=== PATIENT | female | born 1990 | race Caucasian/White ===

== ENCOUNTER 2017-03-22 06:20 | Inpatient (IN) | payer MEDICAID ==
[2017-03-22] VITALS (14 sets, daily range): BP systolic 104–157; BP diastolic 62–88; PULSE 68–113; RESP 16–18; Ht 162.6 cm; Wt 81.8 kg
[~2017-03-22] VITALS: Ht 162.6 cm; Wt 81.8 kg
[~2017-03-22 06:20] MED LIST: AMOX500C2 PO; FERR240T9 PO; HYDR-3498 PO; PREN1TAB17 PO
[2017-03-22] MEDS ORDERED: LACTATED RINGER'S 1,000 ML IV SCH (07:42)
[2017-03-22] MEDS ORDERED: CARBOPROST 250 MCG INJ IM PRN ×2 (08:00→10:00)
[2017-03-22] MEDS ORDERED: CEFAZOLIN 2 GM/50 ML (PMX) 50 ML IV SCH (08:00)
[2017-03-22] MEDS ORDERED: OXYTOCIN 30 UNITS/LR 500 ML IV SCH ×2 (08:00→09:45)
[2017-03-22] MEDS ORDERED: MISOPROSTOL 200 MCG TAB PR PRN ×2 (08:00→10:00)
[2017-03-22] MEDS ORDERED: OXYTOCIN 30 UNITS/LR 500 ML IV PRN ×2 (08:00→10:00)
[2017-03-22] MEDS ORDERED: METHYLERGONOVINE 0.2 MG INJ IM PRN ×2 (08:00→10:00)
[2017-03-22] MEDS ORDERED: ETOMIDATE 20 MG INJ ONE (08:03)
[2017-03-22] MEDS ORDERED: SUCCINYLCHOLINE CHLORIDE 100 MG/5 ML SYG IV ONE (08:03)
[2017-03-22] MEDS ORDERED: ONDANSETRON 4 MG INJ ONE (08:03)
[2017-03-22] MEDS ORDERED: METOCLOPRAMIDE 10 MG INJ ONE (08:03)
[2017-03-22] MEDS ORDERED: MIDAZOLAM 1 MG/ML 2 ML INJ ONE (08:05)
[2017-03-22 08:09] LABS: BASOPHILS % 0.3 % (0.0-2.0); EOSINOPHILS # 0.2 10^3/ul (0.0-0.5); EOSINOPHILS % 1.5 % (0.0-7.0); HEMATOCRIT 30.6 % (37.0-47.0); HEMOGLOBIN 9.8 g/dl (12.0-16.0); LYMPHOCYTES # 3.1 10^3/ul (0.8-2.9); LYMPHOCYTES % 26.7 % (15.0-51.0); MEAN CORPUSCULAR HEMOGLOBIN 25.1 pg (29.0-33.0); MEAN CORPUSCULAR VOLUME 78.3 fl (82.0-101.0); MEAN PLATELET VOLUME 11.4 fl (7.4-10.4); MONOCYTE # 0.7 10^3/ul (0.3-0.9); MONOCYTES % 6.3 % (0.0-11.0); NEUTROPHIL # 7.3 10^3/ul (1.6-7.5); NEUTROPHILS % 63.7 % (39.0-77.0); NUCLEATED RED BLOOD CELLS # 0.1 10^3/ul (0.0-0.0); NUCLEATED RED BLOOD CELLS% 0.4 /100WBC (0.0-0.0); PLATELET COUNT 297 10^3/UL (140-415); RED BLOOD COUNT 3.91 10^6/ul (4.20-5.40); RED CELL DISTRIBUTION WIDTH 15.6 % (11.5-14.5); WHITE BLOOD COUNT 11.5 10^3/ul (4.8-10.8)
[2017-03-22] MEDS ORDERED: KETAMINE 500 MG INJ ONE (08:14)
[2017-03-22] MEDS ORDERED: PHENYLephrine (100 MCG/ML) 5ML SYG ONE (08:23)
--- NOTE | 2017-03-22 08:25 | HP ---
Date/Time of Note Date/Time of Note DATE: 03/22/17 TIME: 08:09 OB - History Hx of Present Free Text/Dictation March 22, 2017 Preoperative history and physical This patient is a 26 years old 5 para 3 1 who with the 2 previous deliveries one by and 1 spontaneous vaginal delivery which was the first one. she does not know her exact first day of her last Menstrual period. However her estimated date of confinement according to the her record is April 08, 2017, which makes her 37 weeks and 4 days today. she came to triage in active labor with contractions every 3-4 minutes and the cervix dilated up to 3 cm almost 90% effaced ,still intact membrane . she is being prepared for immediate repeat section. . . She is a drug addict using methamphetamine and marijuana, brown . she is apparently residing in [place]. She denies any other major medical problems no allergies no other medication. Apparently she has been seen once in a were she received the presumptive eligibility for emergency medical and has ;no other insurance.. Family history; apparently not remarkable We are preparing her for a immediate repeat section. I explained to her the chance of possible infection ,possible injury to any other organ. she understands all of those and will undergo this procedure. Estimated Due Date: Mar 25, 2017 : 5 Para: 3 Therapeutic : 1 Care: Other (Test 1 visit according to patient) Obstetrical Complications: Other (Previous section 2 first delivery by spontaneous vaginal induced #1) Medical Complications: Other (Drug addiction) Other Concerns: Lab tests are not available as of this time Past Family/Social History * Past Medical, Surgical, Family and Obstetric Histories reviewed from chart. OB Admission Exam Vital Signs Vital Signs Vital Signs Date Time Temp Pulse Resp B/P Pulse Ox O2 Delivery O2 Flow Rate FiO2 03/22/17 07:49 97.9 68 111/71 Physical Exam HEENT: Abnormal (Poor dental hygiene) Heart: Rhythm Normal Lungs: Clear Extremities: Other (Adriana every 3-4 minutes) Reflexes: Normal Cervical Dilatation: 3cm Effacement: 75% Station: +2 Membranes: Intact Heart Rate: 150's Accelerations: Accelerations Present Decelerations: No Decelerations Varibility: Moderate Contractions on Admission: 6-10 Minutes Apart Date/Time Contractions Began: 4 hours ago Frequency of Contractions: 45 minutes Duration: 3030 to 42nd Intensity: Firm Last 72 hourBlood Glucose Stat blood works are requested OB Assessment/Plan Reason for admission: active labor, section Other Assessment: Previous 2 Plan: Section Other plan: We are preparing for immediate section Laboratory Tests Test 03/22/17 07:40 White Blood Count 11.510^3/ul Red Blood Count 3.9110^6/ul Hemoglobin 9.8g/dl Hematocrit 30.6% Mean Corpuscular Volume 78.3fl Mean Corpuscular Hemoglobin 25.1pg Mean Corpuscular Hemoglobin Concent 32.0g/dl Red Cell Distribution Width 15.6% Platelet Count 75759^3/UL Mean Platelet Volume 11.4fl Neutrophils % 63.7% Lymphocytes % 26.7% Monocytes % 6.3% Eosinophils % 1.5% Basophils % 0.3% Nucleated Red Blood Cells % 0.4/100WBC Neutrophils # 7.310^3/ul Lymphocytes # 3.110^3/ul Monocytes # 0.710^3/ul Eosinophils # 0.210^3/ul Basophils # 0.010^3/ul Nucleated Red Blood Cells # 0.110^3/ul Current Medications Medications (Trade) Dose Ordered Sig/Eliana Route PRN Reason Start Time Stop Time Status Last Admin Dose Admin Lactated Ringer's 1,000 ml @ 125 mls/hr Q8H IV 03/22/17 07:42 03/22/17 07:53 Cefazolin Sodium/ Dextrose 50 ml @ 100 mls/hr ONCE IV 03/22/17 08:00 Oxytocin/Lactated Ringer's 500 ml @ 125 mls/hr POST IV 03/22/17 08:00 Oxytocin/Lactated Ringer's 500 ml @ 0 mls/hr ONCE PRN IV For Hemorrhage Management 03/22/17 08:00 Methylergonovine Maleate (Methergine) 0.2 mg ONCE PRN IM VAGINAL BLEEDING 03/22/17 08:00 Carboprost Tromethamine (Hemabate) 250 mcg ONCE PRN IM VAGINAL BLEEDING 03/22/17 08:00 Misoprostol (Cytotec) 1,000 mcg ONCE PRN MI VAGINAL BLEEDING 03/22/17 08:00 INDY LOVE MD Mar 22, 2017 08:19
[2017-03-22] MEDS ORDERED: HYDROmorphONE 2 MG/ML SYG ONE (08:34)
[2017-03-22 08:35] LABS: INR 0.88; PT RATIO 0.9
[2017-03-22 08:36] LABS: PARTIAL THROMBOPLASTIN TIME 26.8 Sec (25.0-35.0)
[2017-03-22] MEDS ORDERED: OXYTOCIN 30 UNITS/LR 500 ML IV ONE ×2 (08:36→09:10)
[2017-03-22] MEDS ORDERED: KETOROLAC 30 MG INJ ONE (08:58)
[2017-03-22] MEDS ORDERED: ONDANSETRON 4 MG INJ IV PRN ×2 (09:30)
[2017-03-22] MEDS ORDERED: HYDROmorphONE (0.2 MG/ML) 10ML SYG IV PRN ×3 (09:30)
[2017-03-22] MEDS ORDERED: NALOXONE (0.4 MG/ML) INJ IV PRN (09:30)
[2017-03-22] MEDS ORDERED: HYDROmorphONE 0.2 MG/ML PCA IV SCH (09:30)
[2017-03-22] MEDS ORDERED: HYDROmorphONE 0.5 MG/0.5 ML SYG IV PRN ×2 (09:30)
[2017-03-22] MEDS ORDERED: DIPHENHYDRAMINE 50 MG INJ IV PRN (09:30)
[2017-03-22] MEDS ORDERED: OXYCODONE/ACETAMINOPHEN (5/325) TAB PO PRN ×3 (09:30→10:00)
--- NOTE | 2017-03-22 09:34 | OPR ---
Date/Time of Note Date/Time of Note DATE: 03/22/17 TIME: 09:09 Operative Report Free Text/Dictation March 22, 2017 Operative report This patient 26 years old 5 para 3 1 with estimated date of confinement April 08, 2017 which made her 37 weeks and 4/7 week she was admitted on an emergency basis due to active labor due to the fact that she had 2 previous section . she agreed prepared for repeat section which will be performed under general anesthesia due to multiple problems patient had. Procedure Date: Mar 22, 2017 Preoperative Diagnosis Intrauterine 37 weeks and 4 days history of previous 2 admitted on emergency basis in active labor Postoperative Diagnosis Postoperative diagnosis is the same Operation/Procedure Performed Under satisfactory general anesthesia patient was placed in supine position. 2 incision was made on both side of the previous scar of a Pfannenstiel type skin incision, the scars were removed. Incision was deepened through the subcutaneous fatty tissue and the fascia was opened transversely this was from the underlying rectus muscle The peritoneum was entered vertically There was no mention of adhesion on the uterus itself. Lower segment of the uterus was incised transversely. Baby was in vertex presentation delivery of the baby was carried out without much difficulty. 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 "was clamped and cut cord blood was collected. The was given to the neonatology personnel The placenta was delivered appear to be normal however it was sent for pathological examination. The uterus was exteriorized and endometrial cavity was cleaned from the debris and blood clot An additional incision was closed using chromic catgut 1 and a running in a locking manner in 2 different layers There were no bleeding from this exam the uterus was placed back inside the peritoneal cavity Irrigation of the peritoneal cavity was performed. The perineum was closed with 2-0 chromic catgut in a running manner Intrafascial was brought together with Vicryl 1 Irrigation of the incision was performed the subcutaneous fatty tissue was brought together with 2-0 chromic catgut The skin was closed with madison Estimated blood loss was around 4-500 cc. She tolerated the procedures well and was transferred to the recovery room in stable condition. End of dictation Surgeon see signature line [employer] Network Manager Dr. Harris Anesthesia Type: general Estimated Blood Loss: other (About 500 cc) Transfusion none Specimen placenta Grafts/Implants none Complications none Pt Condition Post Procedure: stable Disposition: PACU Procedure Description as above INDY LOVE MD Mar 22, 2017 09:20
[2017-03-22] MEDS: LACTATED RINGER'S 1,000 ML IV SCH ×2 (09:45→18:24)
[2017-03-22] MEDS ORDERED: METHYLERGONOVINE 0.2 MG TAB PO PRN (10:00)
[2017-03-22] MEDS ORDERED: IBUPROFEN 600 MG TAB PO PRN (10:00)
[2017-03-22] MEDS ORDERED: LANOLIN 7 GM TUBE TOP PRN (10:00)
[2017-03-22] MEDS ORDERED: NA PHOSPHATE/BIPHOS 133 ML ENEMA PR PRN (10:00)
[2017-03-22] MEDS ORDERED: ACETAMINOPHEN 500 MG TAB PO PRN ×2 (10:00)
[2017-03-22 15:36] LABS: CANNABINOIDS Negative (NEGATIVE)
[2017-03-22 15:39] LABS: BARBITURATES Negative (NEGATIVE); BENZODIAZEPINES Negative (NEGATIVE); COCAINE Negative (NEGATIVE); OPIATES Negative (NEGATIVE)
[2017-03-22] MEDS: KETOROLAC 30 MG INJ IV PRN ×2 (17:12→23:24)
[2017-03-23] VITALS: BP 101/55; PULSE 82; RESP 18
[2017-03-23] MEDS: LACTATED RINGER'S 1,000 ML IV SCH (03:57)
[2017-03-23 04:00] VITALS: BP 112/68; PULSE 100; RESP 17
[2017-03-23] MEDS: KETOROLAC 30 MG INJ IV PRN (06:38)
[2017-03-23 07:50] VITALS: BP 116/59; PULSE 78; RESP 16
[2017-03-23 10:41] LABS: BASOPHIL # 0.1 10^3/ul (0.0-0.1); BASOPHILS % 0.4 % (0.0-2.0); EOSINOPHILS # 0.1 10^3/ul (0.0-0.5); EOSINOPHILS % 0.6 % (0.0-7.0); LYMPHOCYTES # 3.4 10^3/ul (0.8-2.9); LYMPHOCYTES % 23.9 % (15.0-51.0); MEAN CORPUSCULAR HEMOGLOBIN 25.1 pg (29.0-33.0); MEAN CORPUSCULAR VOLUME 78.4 fl (82.0-101.0); MEAN PLATELET VOLUME 11.3 fl (7.4-10.4); MONOCYTE # 0.6 10^3/ul (0.3-0.9); MONOCYTES % 4.6 % (0.0-11.0); NEUTROPHIL # 9.7 10^3/ul (1.6-7.5); NEUTROPHILS % 69.2 % (39.0-77.0); NUCLEATED RED BLOOD CELLS% 0.1 /100WBC (0.0-0.0); PLATELET COUNT 295 10^3/UL (140-415); RED BLOOD COUNT 3.19 10^6/ul (4.20-5.40); RED CELL DISTRIBUTION WIDTH 15.4 % (11.5-14.5)
[2017-03-23] MEDS: IBUPROFEN 600 MG TAB PO SCH ×3 (11:56→23:03)
[2017-03-23 12:37] LABS: RUBELLA ANTIBODY - IGG <0.90 index
[2017-03-23] MEDS: OXYCODONE/ACETAMINOPHEN (5/325) TAB PO PRN (13:14)
[2017-03-23 16:00] VITALS: BP 110/64; PULSE 77; RESP 18
--- NOTE | 2017-03-23 16:11 | QN ---
Documentation Comment POD#1 is stable afebrile No VB +Flatus +Adequate urine VS stable Gen NAD Abd soft NT ND Incision intact Genitalia No blood at perinium --->discharge plan tomorrow TINO BEAVER M.D. Mar 23, 2017 16:10
[2017-03-23] MEDS ORDERED: MEASLES,MUMPS,RUBELLA VACCINE INJ SC* ONE (18:00)
[2017-03-23 20:00] VITALS: BP 117/63; PULSE 95; RESP 18
[2017-03-24 04:00] VITALS: BP 113/64; PULSE 98; RESP 17
[2017-03-24] MEDS: OXYCODONE/ACETAMINOPHEN (5/325) TAB PO PRN ×2 (04:27→19:30)
[2017-03-24] MEDS: IBUPROFEN 600 MG TAB PO SCH ×4 (05:57→23:41)
[2017-03-24 08:00] VITALS: BP 102/58; PULSE 82; RESP 18
--- NOTE | 2017-03-24 14:41 | PN ---
Date/Time of Note Date/Time of Note DATE: 03/24/17 TIME: 14:37 OB Subjective Subjective Subjective Post day 2 Doing Well Afebrile Ambulatory Chest Clear Breasts are soft , Nipples are intact Abdomen is soft Fundus is firm Moderate amount of lochia Incision is clean ,No evidence of infection No calf tenderness No ankle edema Current Medications Medications (Trade) Dose Ordered Sig/Eliana Route PRN Reason Start Time Stop Time Status Last Admin Dose Admin Lactated Ringer's 1,000 ml @ 125 mls/hr Q8H IV 03/22/17 07:42 03/22/17 14:03 DC 03/22/17 07:53 Cefazolin Sodium/ Dextrose 50 ml @ 100 mls/hr ONCE IV 03/22/17 08:00 03/22/17 14:03 DC Oxytocin/Lactated Ringer's 500 ml @ 125 mls/hr POST IV 03/22/17 08:00 03/22/17 14:03 DC 03/22/17 12:06 Oxytocin/Lactated Ringer's 500 ml @ 0 mls/hr ONCE PRN IV For Hemorrhage Management 03/22/17 08:00 03/22/17 14:03 DC Methylergonovine Maleate (Methergine) 0.2 mg ONCE PRN IM VAGINAL BLEEDING 03/22/17 08:00 03/23/17 10:00 DC Carboprost Tromethamine (Hemabate) 250 mcg ONCE PRN IM VAGINAL BLEEDING 03/22/17 08:00 Cancel Misoprostol (Cytotec) 1,000 mcg ONCE PRN MI VAGINAL BLEEDING 03/22/17 08:00 03/23/17 10:00 DC Hydromorphone HCl (Dilaudid (Rec)) 0.2 mg PACU ORDER PRN IV MILD PAIN LEVEL 1-3 03/22/17 09:30 03/22/17 14:00 DC Hydromorphone HCl (Dilaudid (Rec)) 0.4 mg PACU ORDER PRN IV MODERATE PAIN LEVEL 4-6 03/22/17 09:30 03/22/17 14:00 DC Hydromorphone HCl (Dilaudid (Rec)) 0.6 mg PACU ORDER PRN IV SEVERE PAIN LEVEL 7-10 03/22/17 09:30 03/22/17 14:00 DC Ondansetron HCl (Zofran Inj) 4 mg PACU ORDER PRN IV NAUSEA AND/OR VOMITING 03/22/17 09:30 03/22/17 14:00 DC Naloxone HCl (Narcan) 0.2 mg PRN PRN IV DECREASED REPIRATORY RATE 03/22/17 09:30 Hydromorphone HCl (Dilaudid CHIEF ENGINEER) 0.2 mg Q4PCA IV 03/22/17 09:30 03/23/17 10:00 DC 03/22/17 10:18 Oxycodone/ Acetaminophen (Percocet (5/ 325)) 1 tab Q4H PRN PO PAIN LEVEL 1-5 03/22/17 09:30 Future hold Oxycodone/ Acetaminophen (Percocet (5/ 325)) 2 tab Q4H PRN PO PAIN LEVEL 6-10 03/22/17 09:30 Future hold 03/24/17 04:27 Hydromorphone HCl (Dilaudid) 0.2 mg Q4H PRN IV PAIN LEVEL 1-5 03/22/17 09:30 03/23/17 15:11 DC Hydromorphone HCl (Dilaudid) 0.4 mg Q4H PRN IV PAIN LEVEL 6-10 03/22/17 09:30 03/23/17 15:11 DC Ketorolac Tromethamine (Toradol) 30 mg Q6H PRN IV PAIN UNRELIEVED BY IV NARCOTIC 03/22/17 09:30 03/23/17 10:00 DC 03/23/17 06:38 Ondansetron HCl (Zofran Inj) 4 mg Q6H PRN IV NAUSEA AND/OR VOMITING 03/22/17 09:30 Diphenhydramine HCl 25 mg 25 mg Q6H PRN IV ITCHING 03/22/17 09:30 Lactated Ringer's 1,000 ml @ 125 mls/hr Q8H IV 03/22/17 09:45 03/23/17 10:00 DC 03/23/17 03:57 Oxytocin/Lactated Ringer's 500 ml @ 50 mls/hr Q10H IV 03/22/17 09:45 03/22/17 14:03 DC 03/22/17 10:21 Methylergonovine Maleate (Methergine) 0.2 mg Q6H PRN PO VAGINAL BLEEDING 03/22/17 10:00 Oxycodone/ Acetaminophen (Percocet (5/ 325)) 1 tab Q4H PRN PO PAIN LEVEL 4-6 03/22/17 10:00 UNV Oxycodone/ Acetaminophen (Percocet (5/ 325)) 2 tab Q4H PRN PO PAIN LEVEL 7-10 03/22/17 10:00 UNV Simethicone (Mylicon) 160 mg Q8H PRN PO DISTENSION/GAS/BLOATING 03/22/17 10:00 Sodium Biphosphate/ Sodium Phosphate (Fleet Enema) 133 ml DAILY PRN MI CONSTIPATION 03/22/17 10:00 Lanolin ([id number]) 1 applic BEDSIDE MEDICATION PRN TOP BEDSIDE FOR MELISA TO NIPPLES 03/22/17 10:00 Diphtheria/ Tetanus/Acell Pertussis 0.5 ml 0.5 ml ONCE ONCE IM* 03/25/17 09:00 03/25/17 09:00 DC Oxytocin/Lactated Ringer's 500 ml @ 0 mls/hr ONCE PRN IV For Hemorrhage Management 03/22/17 10:00 Methylergonovine Maleate (Methergine) 0.2 mg ONCE PRN IM VAGINAL BLEEDING 03/22/17 10:00 Carboprost Tromethamine (Hemabate) 250 mcg ONCE PRN IM VAGINAL BLEEDING 03/22/17 10:00 Misoprostol (Cytotec) 1,000 mcg ONCE PRN MI VAGINAL BLEEDING 03/22/17 10:00 Ibuprofen (Motrin) 600 mg Q6H PRN PO PAIN 03/25/17 10:00 03/25/17 10:00 DC Acetaminophen (Tylenol Tab) 500 mg Q6H PRN PO PAIN AND OR ELEVATED TEMP 03/22/17 10:00 Ibuprofen (Motrin) 600 mg Q6H PRN PO PAIN 03/22/17 10:00 UNV Acetaminophen (Tylenol Tab) 500 mg Q6H PRN PO PAIN AND OR ELEVATED TEMP 03/22/17 10:00 UNV Ibuprofen (Motrin) 600 mg Q6H PO 03/23/17 12:00 03/24/17 12:19 Etomidate (Amidate) 20 mg STK-MED ONCE .ROUTE 03/22/17 08:03 03/22/17 16:37 DC Succinylcholine Chloride (Anectine Syringe) 100 mg STK-MED ONCE IV 03/22/17 08:03 03/22/17 16:37 DC Ondansetron HCl (Zofran Inj) 4 mg STK-MED ONCE .ROUTE 03/22/17 08:03 03/22/17 16:37 DC Metoclopramide HCl (Reglan) 10 mg STK-MED ONCE .ROUTE 03/22/17 08:03 03/22/17 16:37 DC Midazolam HCl (Versed) 2 mg STK-MED ONCE .ROUTE 03/22/17 08:05 03/22/17 16:38 DC Ketamine HCl (Ketalar) 500 mg STK-MED ONCE .ROUTE 03/22/17 08:14 03/22/17 16:38 DC Phenylephrine HCl (Biju-Synephrine Inj Syg) 500 mcg STK-MED ONCE .ROUTE 03/22/17 08:23 03/22/17 16:38 DC Hydromorphone HCl 2 mg 2 mg STK-MED ONCE .ROUTE 03/22/17 08:34 03/22/17 16:38 DC Oxytocin/Lactated Ringer's 500 ml @ ud STK-MED ONCE IV 03/22/17 08:36 03/22/17 16:38 DC Ketorolac Tromethamine 30 mg 30 mg STK-MED ONCE .ROUTE 03/22/17 08:58 03/22/17 16:39 DC Oxytocin/Lactated Ringer's 500 ml @ ud STK-MED ONCE IV 03/22/17 09:10 03/22/17 16:53 DC Measles/Mumps/ Rubella Vaccine Live (Mmr Ii Vaccine) 0.5 ml ONCE ONCE SC* 03/23/17 18:00 03/23/17 18:01 DC 03/23/17 17:49 New born is doing well, Breast feeding INDY LOVE MD Mar 24, 2017 14:41
[2017-03-24 16:00] VITALS: BP 121/72; RESP 18
[2017-03-24 20:00] VITALS: BP 118/64; PULSE 94; RESP 18
[2017-03-25 04:00] VITALS: BP 112/64; PULSE 88; RESP 19
[2017-03-25] MEDS: IBUPROFEN 600 MG TAB PO SCH ×2 (05:43→11:55)
[2017-03-25 08:00] VITALS: BP 126/83; RESP 18
[2017-03-25] MEDS ORDERED: DIPHTH/TET/ACEL PERTUSS (ADULT) 0.5 ML VIAL IM* ONE (09:00)
[2017-03-25] MEDS ORDERED: IBUPROFEN 600 MG TAB PO PRN (10:00)
--- NOTE | 2017-03-25 11:54 | DS ---
Date/Time of Note Date/Time of Note DATE: 03/25/17 TIME: 11:44 Obstetrical Discharge Record Final Diagnosis Final Diagnosis: Term delivered Other Final Diagnosis (This patient is a 26 years old 5 para 3 1 who with the 2 previous deliveries one by and 1 spontaneous vaginal delivery which was the first one. she does not know her exact first day of her last Menstrual period. However her estimated date of confinement according to the her record is April 08, 2017, which makes her 37 weeks and 4 days today. she came to triage in active labor with contractions every 3-4 minutes and the cervix dilated up to 3 cm almost 90% effaced ,still intact membrane . she underwent a repeat C Section . Vaginal Delivery Other Delivery information Current Medications Medications (Trade) Dose Ordered Sig/Eliana Route PRN Reason Start Time Stop Time Status Last Admin Dose Admin Lactated Ringer's 1,000 ml @ 125 mls/hr Q8H IV 03/22/17 07:42 03/22/17 14:03 DC 03/22/17 07:53 Cefazolin Sodium/ Dextrose 50 ml @ 100 mls/hr ONCE IV 03/22/17 08:00 03/22/17 14:03 DC Oxytocin/Lactated Ringer's 500 ml @ 125 mls/hr POST IV 03/22/17 08:00 03/22/17 14:03 DC 03/22/17 12:06 Oxytocin/Lactated Ringer's 500 ml @ 0 mls/hr ONCE PRN IV For Hemorrhage Management 03/22/17 08:00 03/22/17 14:03 DC Methylergonovine Maleate (Methergine) 0.2 mg ONCE PRN IM VAGINAL BLEEDING 03/22/17 08:00 03/23/17 10:00 DC Carboprost Tromethamine (Hemabate) 250 mcg ONCE PRN IM VAGINAL BLEEDING 03/22/17 08:00 Cancel Misoprostol (Cytotec) 1,000 mcg ONCE PRN ID VAGINAL BLEEDING 03/22/17 08:00 03/23/17 10:00 DC Hydromorphone HCl (Dilaudid (Rec)) 0.2 mg PACU ORDER PRN IV MILD PAIN LEVEL 1-3 03/22/17 09:30 03/22/17 14:00 DC Hydromorphone HCl (Dilaudid (Rec)) 0.4 mg PACU ORDER PRN IV MODERATE PAIN LEVEL 4-6 03/22/17 09:30 03/22/17 14:00 DC Hydromorphone HCl (Dilaudid (Rec)) 0.6 mg PACU ORDER PRN IV SEVERE PAIN LEVEL 7-10 03/22/17 09:30 03/22/17 14:00 DC Ondansetron HCl (Zofran Inj) 4 mg PACU ORDER PRN IV NAUSEA AND/OR VOMITING 03/22/17 09:30 03/22/17 14:00 DC Naloxone HCl (Narcan) 0.2 mg PRN PRN IV DECREASED REPIRATORY RATE 03/22/17 09:30 Hydromorphone HCl (Dilaudid FLOODPLAIN MANAGER) 0.2 mg Q4PCA IV 03/22/17 09:30 03/23/17 10:00 DC 03/22/17 10:18 Oxycodone/ Acetaminophen (Percocet (5/ 325)) 1 tab Q4H PRN PO PAIN LEVEL 1-5 03/22/17 09:30 Future hold Oxycodone/ Acetaminophen (Percocet (5/ 325)) 2 tab Q4H PRN PO PAIN LEVEL 6-10 03/22/17 09:30 Future hold 03/24/17 19:30 Hydromorphone HCl (Dilaudid) 0.2 mg Q4H PRN IV PAIN LEVEL 1-5 03/22/17 09:30 03/23/17 15:11 DC Hydromorphone HCl (Dilaudid) 0.4 mg Q4H PRN IV PAIN LEVEL 6-10 03/22/17 09:30 03/23/17 15:11 DC Ketorolac Tromethamine (Toradol) 30 mg Q6H PRN IV PAIN UNRELIEVED BY IV NARCOTIC 03/22/17 09:30 03/23/17 10:00 DC 03/23/17 06:38 Ondansetron HCl (Zofran Inj) 4 mg Q6H PRN IV NAUSEA AND/OR VOMITING 03/22/17 09:30 Diphenhydramine HCl 25 mg 25 mg Q6H PRN IV ITCHING 03/22/17 09:30 Lactated Ringer's 1,000 ml @ 125 mls/hr Q8H IV 03/22/17 09:45 03/23/17 10:00 DC 03/23/17 03:57 Oxytocin/Lactated Ringer's 500 ml @ 50 mls/hr Q10H IV 03/22/17 09:45 03/22/17 14:03 DC 03/22/17 10:21 Methylergonovine Maleate (Methergine) 0.2 mg Q6H PRN PO VAGINAL BLEEDING 03/22/17 10:00 Oxycodone/ Acetaminophen (Percocet (5/ 325)) 1 tab Q4H PRN PO PAIN LEVEL 4-6 03/22/17 10:00 UNV Oxycodone/ Acetaminophen (Percocet (5/ 325)) 2 tab Q4H PRN PO PAIN LEVEL 7-10 03/22/17 10:00 UNV Simethicone (Mylicon) 160 mg Q8H PRN PO DISTENSION/GAS/BLOATING 03/22/17 10:00 Sodium Biphosphate/ Sodium Phosphate (Fleet Enema) 133 ml DAILY PRN ID CONSTIPATION 03/22/17 10:00 Lanolin ([id number]-Nwnsug) 1 applic BEDSIDE MEDICATION PRN TOP BEDSIDE FOR MELISA TO NIPPLES 03/22/17 10:00 Diphtheria/ Tetanus/Acell Pertussis 0.5 ml 0.5 ml ONCE ONCE IM* 03/25/17 09:00 03/25/17 09:00 DC Oxytocin/Lactated Ringer's 500 ml @ 0 mls/hr ONCE PRN IV For Hemorrhage Management 03/22/17 10:00 Methylergonovine Maleate (Methergine) 0.2 mg ONCE PRN IM VAGINAL BLEEDING 03/22/17 10:00 Carboprost Tromethamine (Hemabate) 250 mcg ONCE PRN IM VAGINAL BLEEDING 03/22/17 10:00 Misoprostol (Cytotec) 1,000 mcg ONCE PRN ID VAGINAL BLEEDING 03/22/17 10:00 Ibuprofen (Motrin) 600 mg Q6H PRN PO PAIN 03/25/17 10:00 03/25/17 10:00 DC Acetaminophen (Tylenol Tab) 500 mg Q6H PRN PO PAIN AND OR ELEVATED TEMP 03/22/17 10:00 Ibuprofen (Motrin) 600 mg Q6H PRN PO PAIN 03/22/17 10:00 UNV Acetaminophen (Tylenol Tab) 500 mg Q6H PRN PO PAIN AND OR ELEVATED TEMP 03/22/17 10:00 UNV Ibuprofen (Motrin) 600 mg Q6H PO 03/23/17 12:00 03/25/17 05:43 Etomidate (Amidate) 20 mg STK-MED ONCE .ROUTE 03/22/17 08:03 03/22/17 16:37 DC Succinylcholine Chloride (Anectine Syringe) 100 mg STK-MED ONCE IV 03/22/17 08:03 03/22/17 16:37 DC Ondansetron HCl (Zofran Inj) 4 mg STK-MED ONCE .ROUTE 03/22/17 08:03 03/22/17 16:37 DC Metoclopramide HCl (Reglan) 10 mg STK-MED ONCE .ROUTE 03/22/17 08:03 03/22/17 16:37 DC Midazolam HCl (Versed) 2 mg STK-MED ONCE .ROUTE 03/22/17 08:05 03/22/17 16:38 DC Ketamine HCl (Ketalar) 500 mg STK-MED ONCE .ROUTE 03/22/17 08:14 03/22/17 16:38 DC Phenylephrine HCl (Biju-Synephrine Inj Syg) 500 mcg STK-MED ONCE .ROUTE 03/22/17 08:23 03/22/17 16:38 DC Hydromorphone HCl 2 mg 2 mg STK-MED ONCE .ROUTE 03/22/17 08:34 03/22/17 16:38 DC Oxytocin/Lactated Ringer's 500 ml @ ud STK-MED ONCE IV 03/22/17 08:36 03/22/17 16:38 DC Ketorolac Tromethamine 30 mg 30 mg STK-MED ONCE .ROUTE 03/22/17 08:58 03/22/17 16:39 DC Oxytocin/Lactated Ringer's 500 ml @ ud STK-MED ONCE IV 03/22/17 09:10 03/22/17 16:53 DC Measles/Mumps/ Rubella Vaccine Live (Mmr Ii Vaccine) 0.5 ml ONCE ONCE SC* 03/23/17 18:00 03/23/17 18:01 DC 03/23/17 17:49 Section Section: Repeat Primary Indication previous c sections. in active labor new born with total cleft palate Condition on Discharge Physical Assessment Voiding: Yes Bowel Movement: Yes Breast: Soft, non-tender Fundus: Firm Abdomen and Incision: healing well , madison removed and steri straps applied. Calf Tenderness: No Patient Condition: Good INDY LOVE MD Mar 25, 2017 11:54
[2017-03-25] MEDS: OXYCODONE/ACETAMINOPHEN (5/325) TAB PO PRN (14:56)
== END 2017-03-25 15:30 | disposition home or self-care (01) | DRG 765 ==
LOC: OBT 06:20 → L-D 07:30 → PP1 12:43
PROVIDERS: ADMIT Obstetrics & Gynecology Obstetrics; ATTEND Obstetrics & Gynecology Obstetrics
PROC: 10D00Z1 Extraction of Products of Conception, Low, Open Approach (ICD-10-PCS; principal; 2017-03-22 07:30)
DX: O34.211 Maternal care for low transverse scar from previous cesarean delivery (principal); F15.20 Other stimulant dependence, uncomplicated; O99.324 Drug use complicating childbirth; Z37.0 Single live birth; Z3A.37 37 weeks gestation of pregnancy
CPT/HCPCS: 80307; 85025; 85610; 85730; 86592; 86703; 86762; 86850; 86900; 86901; 87340; 88307; G0463; J1170; J1885; J2210; J2250; J2370; J2405; J2590; J2765; J7120

== ENCOUNTER 2018-09-29 20:44 | Emergency (ER) | payer SELFPAY ==
[~2018-09-29] VITALS: Ht 167.6 cm; Wt 71.1 kg
[~2018-09-29 20:44] MED LIST changes: -AMOX500C2 PO; -HYDR-3498 PO
[2018-09-29 20:46] VITALS: Ht 167.6 cm; Wt 71.1 kg
[2018-09-29] MEDS ORDERED: ACETAMINOPHEN 325 MG TAB PO STA (21:40)
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
[2018-09-29] MEDS ORDERED: ACET500C5 PO (22:59)
[2018-09-29] MEDS ORDERED: NITR-58 PO (22:59)
[2018-09-30 00:30] VITALS: BP 125/69; PULSE 85; RESP 16
== END 2018-09-30 00:32 | disposition home or self-care (01) ==
LOC: FTE 20:44
DX: O20.9 Hemorrhage in early pregnancy, unspecified (principal); O99.331 Smoking (tobacco) complicating pregnancy, first trimester; F17.210 Nicotine dependence, cigarettes, uncomplicated; O23.41 Unspecified infection of urinary tract in pregnancy, first trimester; R10.2 Pelvic and perineal pain; Z3A.01 Less than 8 weeks gestation of pregnancy
CPT/HCPCS: 36415; 76801; 76817; 81001; 84702; 85025; 86900; 86901